=== PATIENT | male | born 1960 | race American Indian/Alaskan Native ===

== ENCOUNTER 2018-07-26 07:26 | Day surgery (SDC) | payer OTHER ==
[~2018-07-26 07:26] MED LIST: ANCEF/STERILE WATER 2 GM/20 ML 2 GM/20 ML SYRINGE IV NR; NACL 0.9% 1000 ML 1,000 ML IV SCH
[2018-07-26] MEDS ORDERED: VERSED IV NR (09:15)
[2018-07-26 09:33] LABS: Basophils # (Auto) 0.1 K/mm3 (0.0-0.1); Basophils % (Auto) 1.3 % (0.0-1.8); Eosinophils # (Auto) 0.1 K/mm3 (0.0-0.4); Eosinophils % (Auto) 1.9 % (0.0-4.3); Hematocrit 35.7 % (35.5-45.6); Hemoglobin 11.5 gm/dl (11.8-15.2); Lymphocytes # (Auto) 1.7 K/mm3 (1.2-5.4); Lymphocytes % (Auto) 23.9 % (13.4-35.0); Mean Corpuscular HGB Conc 32 % (32-34); Mean Corpuscular Volume 83 fl (84-94); Monocytes # (Auto) 0.7 K/mm3 (0.0-0.8); Monocytes % (Auto) 9.5 % (0.0-7.3); Platelet Count 275 K/mm3 (140-440); Red Blood Count 4.31 M/mm3 (3.65-5.03); Red Cell Distribution Width 14.9 % (13.2-15.2)
[2018-07-26] MEDS ORDERED: SUBLIMAZE IV PRN (09:59)
[2018-07-26] MEDS ORDERED: MARCAINE 0.5% INFILTRATI ONE ×4 (10:07→19:12)
[2018-07-26] MEDS ORDERED: NACL 0.9% 500 ML 0 ML ONE (10:07)
[2018-07-26] MEDS ORDERED: HEPARIN 10,000 UNITS/10 ML ONE ×2 (10:07→19:13)
--- NOTE | 2018-07-26 10:14 | Anesthesia Consultation ---
Anesthesia Consult and Med Hx Date of service: 07/26/18 - Airway Anesthetic Teeth Evaluation: Good ROM Head & Neck: Adequate Mental/Hyoid Distance: Adequate Mallampati Class: Class II Intubation Access Assessment: Probably Good - Pulmonary Exam CTA: Yes - Cardiac Exam Cardiac Exam: RRR - Pre-Operative Health Status ASA Pre-Surgery Classification: ASA4 Proposed Anesthetic Plan: General - Pulmonary Hx Smoking: Yes (Former) Hx Asthma: No COPD: No - Cardiovascular System Hx Hypertension: Yes (took metoprolol and amlodipine today) Hx Heart Attack/AMI: No Hx Percutaneous Transluminal Coronary Angioplasty (PTCA): No Hx Cardia Arrhythmia: No Hx Pacemaker: No - Central Nervous System Hx Seizures: No CVA: No Hx Psychiatric Problems: No - Gastrointestinal Hx Gastroesophageal Reflux Disease: No - Endocrine Hx Renal Disease: Yes Hx End Stage Renal Disease: Yes Hx Insulin Dependent Diabetes: Yes (took evening dose of insulin) Hx Thyroid Disease: No - Other Systems Hx Obesity: Yes - Additional Comments Anesthesia Medical History Comments: No hx anesthetic complications.
[2018-07-26] MEDS ORDERED: XYLOCAINE MPF 2% ONE (10:20)
--- NOTE | 2018-07-26 10:20 | Anesthesia Day of Surgery ---
Anesthesia Day of Surgery - Day of Surgery Patient Examined: Yes Patient H&P Reviewed: Yes Patient is NPO: Yes Beta Blockers: Yes
[2018-07-26] MEDS ORDERED: DIPRIVAN 10 MG/ML IV ONE ×2 (10:21→17:58)
[2018-07-26] MEDS ORDERED: SUBLIMAZE ONE ×3 (10:21→17:59)
[2018-07-26] MEDS ORDERED: HEPARIN 10,000 UNITS/10 ML IV ONE (12:39)
[2018-07-26] MEDS ORDERED: NACL 0.9% 500 ML IRRIGATION ONE (12:40)
[2018-07-26] MEDS ORDERED: NACL 0.9% IR ONE (12:41)
[2018-07-26] MEDS ORDERED: ZOFRAN ONE (14:57)
--- NOTE | 2018-07-26 15:37 | Post Operative Note ---
Pre-op diagnosis: end-stage renal disease, malfunctioning AV fistula Post-op diagnosis: same Findings: New AV graft with soft thrill and bruit. Procedure: Creation of left forearm straight radio cephalic AV graft Anesthesia: NICHOLE Surgeon: CYNDI CARTER
--- NOTE | 2018-07-26 15:39 | Post Operative Note ---
Pre-op diagnosis: end-stage renal disease, thrombosed fistula left arm Post-op diagnosis: same Findings: Soft thrill and bruit in left forearm straight radial to cephalic vein graft Procedure: Creation of left forearm straight radial artery to cephalic vein graft Anesthesia: NICHOLE Surgeon: CYNDI CARTER Estimated blood loss: minimal Pathology: none Condition: stable Disposition: same day
[2018-07-26] MEDS ORDERED: NORMODYNE IV ONE ×4 (15:42→20:39)
--- NOTE | 2018-07-26 15:50 | Short Stay Summary ---
Short Stay Documentation Date of service: 07/26/18 Narrative H&P: Patient admitted to the operative suite for outpatient creation of a new AV graft in his left forearm - History H&P: obtained from office - Allergies and Medications Current Medications: Allergies No Known Allergies Allergy (Verified 07/24/18 10:24) Home Medications Medication Instructions Recorded Confirmed Last Taken Type Atorvastatin [Lipitor] 20 mg PO DAILY 05/29/18 07/24/18 07/25/18 History Calcitriol [Rocaltrol] 0.25 mcg PO DAILY 05/29/18 07/24/18 07/25/18 History Metoprolol Tartrate 25 mg PO BID 05/29/18 07/24/18 07/26/18 06:45 History Terazosin [Hytrin] 5 mg PO DAILY 05/29/18 07/24/18 07/25/18 History Amlodipine Besylate [Norvasc] 10 mg PO DAILY 30 Days #30 06/01/18 07/24/18 07/26/18 06:45 Rx Insulin Glargine,Hum.rec.anlog 32 units SQ HS 30 Days 06/01/18 07/24/18 07/25/18 Rx [Lantus] Insulin Glulisine [Apidra] 11 units SQ AC 30 Days 06/01/18 07/24/18 07/25/18 Rx Active Medications Fentanyl (Sublimaze) 50 mcg IV Q5MIN PRN PRN Reason: Pain , Severe (7-10) Stop: 07/26/18 20:00 Cefazolin Sodium (Ancef/Sterile Water 2 Gm/20 Ml) 2 gm in 20 mls @ 80 mls/hr IV PREOP NR; Protocol Stop: 07/26/18 23:59 Sodium Chloride (Nacl 0.9% 1000 Ml) 1,000 mls @ 42 mls/hr IV DIRECT KIMBERLEE Last Admin: 07/26/18 08:50 Dose: 42 mls/hr Documented by: - Brief post op/procedure progress note Date of procedure: 07/26/18 Procedure: Pre-op diagnosis: end-stage renal disease, thrombosed fistula left arm Post-op diagnosis: same Findings: Soft thrill and bruit in left forearm straight radial to cephalic vein graft Procedure: Creation of left forearm straight radial artery to cephalic vein graft Anesthesia: GETA Surgeon: CYNDI CARTER Estimated blood loss: minimal Pathology: none Condition: stable Disposition: same day - Disposition Condition at discharge: Stable Disposition: DC-01 TO HOME OR SELFCARE - Discharge Diagnoses (1) ESRD needing dialysis Status: Chronic Short Stay Discharge Plan Activity: advance as tolerated Weight Bearing Status: Full Weight Bearing Diet: renal Wound: keep clean and dry Special Instructions: no heavy lifting Follow up with: OJ KELLER MD [Primary Care Provider] - 7 Days CYNDI CARTER MD [Staff Physician] - 7 Days Prescriptions: HYDROcodone/APAP 5-325 [[place] 5/325] 1 each PO Q6HR PRN #20 tablet PRN Reason: Pain, Moderate (4-6)
[2018-07-26] MEDS ORDERED: NACL 0.9% 500 ML 500 ML ONE (19:15)
[2018-07-26 21:05] VITALS: BP 165/95
--- NOTE | 2018-07-29 14:14 | Operative Report ---
Operative Report Operative Report: Date of procedure: 07/26/2018 Pre-operative diagnosis: Mechanical complication of surgically created AV fistula left arm, end-stage renal disease, Post-operative diagnosis: Same Procedure name(s): Creation of left forearm radial to brachial vein AV graft Surgeon: Nikolas Darling MD Grinder Operator Tool: None Anesthesia: Gen. EBL: Minimal Specimen(s): None Complications: None but access poorly functioning early in the recovery room assessment Findings: Seemingly adequate inflow via the first several centimeters of the Silvino AV fistula. Full veins smaller than anticipated based on prior venography and fistulograms area fistula suboptimal thrill and bruit. Procedure: Patient in the supine position after adequate levels of general endotracheal anesthesia was obtained the left arm was then extended and prepped and draped using standard sterile technique. I initially explored the proximal forearm at the antecubital fossa after imaging the median cephalic and ante- brachial veins. The cephalic vein with multiple side branches as additional runnoff appeared adequate for anastomosis and therefore was mobilized through the vertical incision in the proximal forearm. I then made a incision overlying the proximal end of the still functioning Silvino fistula and mobilized that segment of vein for several centimeters and determined the inflow was adequate. I then obtained a 6 mm Artegraft and brought it into the surgical field. I tapered the anastomosis and then occluded the Silvino vein and divided it distally from the arterial anastomosis. Later the vein after obtaining vascular control and created an end to side anastomosis using 6-0 Prolene suture and running technique. I flushed the fistula prior to suture line completion and then reoccluded the vessel. A curved Windy-Wick tunneling device was then used to create a forearm tunnel between the 2 incisions and the autograft was attached to the tunneler and withdrawn into the antecubital fossa and a nonrotational fashion. I occluded the veins and made a longitudinal venotomy. I then dilated the veins with hydrostatic pressure and even ran a Andrea without inflating the balloon of the cephalic vein to confirm patency. I then trimmed the graft an appropriate length and configuration and created an end-to-side anastomosis again using 6-0 Prolene suture in four suture running technique. Graft was flushed evacuating air and flow was released into the venous circulation. The graft developed an adequate thrill and bruit. Incisions were then anesthetized with a field block of Marcaine 0.5% and the incisions were closed using 3-0 Vicryl subcutaneous for Monocryl subcuticular. Reassess the graft function several times and was a little concerned that that was slightly diminished flow is the end of the closure maneuver but did not see any compromise in arterial or graft diameter based on intraoperative duplex assessment. The skin was then reapproximated using Dermabond and the patient was then extubated and returned to the recovery room stable condition having tolerated the procedure well. Sponge and needle counts were correct. There was a soft bruit noted in the access.
== END 2018-07-26 07:27 | disposition home or self-care (01) ==
LOC: OR 07:26
PROVIDERS: ATTEND Surgery Vascular Surgery
DX: T82.590A Other mechanical complication of surgically created arteriovenous fistula, initial encounter (principal); I12.0 Hypertensive chronic kidney disease with stage 5 chronic kidney disease or end stage renal disease; E11.22 Type 2 diabetes mellitus with diabetic chronic kidney disease; N18.6 End stage renal disease; M19.90 Unspecified osteoarthritis, unspecified site; E66.9 Obesity, unspecified; Z68.32 Body mass index [BMI] 32.0-32.9, adult; Z99.2 Dependence on renal dialysis; Z79.899 Other long term (current) drug therapy; Z79.4 Long term (current) use of insulin; Z87.891 Personal history of nicotine dependence; Z98.890 Other specified postprocedural states; Y83.8 Other surgical procedures as the cause of abnormal reaction of the patient, or of later complication, without mention of misadventure at the time of the procedure; Y92.89 Other specified places as the place of occurrence of the external cause
CPT/HCPCS: 36415; 36825; 80048; 82962; 85025; C1757; C1768; J0690; J1644; J2250; J2405; J2704; J3010; J7030; J7040

== ENCOUNTER 2018-08-08 05:53 | Day surgery (SDC) | payer OTHER ==
[2018-08-08] MEDS ORDERED: ANCEF/STERILE WATER 2 GM/20 ML 2 GM/20 ML SYRINGE IV NR (06:00)
[2018-08-08] MEDS ORDERED: NACL 0.9% 1000 ML 1,000 ML IV SCH (06:00)
[2018-08-08] MEDS ORDERED: HEPARIN 10,000 UNITS/10 ML ONE (07:29)
[2018-08-08] MEDS ORDERED: MARCAINE 0.5% INFILTRATI ONE ×2 (07:29→08:11)
[2018-08-08] MEDS ORDERED: PROTAMINE SULFATE ONE (07:29)
[2018-08-08] MEDS ORDERED: NACL 0.9% 500 ML 500 ML ONE (07:30)
[2018-08-08] MEDS ORDERED: SODIUM BICARBONATE ONE (07:30)
[2018-08-08] MEDS ORDERED: XYLOCAINE 1%/ EPI 1:100,000 INFILTRATI ONE (07:30)
[2018-08-08] MEDS ORDERED: XYLOCAINE MPF 2% ONE (07:33)
[2018-08-08] MEDS ORDERED: DIPRIVAN 10 MG/ML IV ONE (07:33)
[2018-08-08] MEDS ORDERED: SUBLIMAZE ONE (07:33)
[2018-08-08] MEDS ORDERED: KETALAR ONE (07:34)
--- NOTE | 2018-08-08 07:42 | Anesthesia Consultation ---
Anesthesia Consult and Med Hx Date of service: 08/08/18 - Airway Anesthetic Teeth Evaluation: Good ROM Head & Neck: Adequate Mental/Hyoid Distance: Adequate Mallampati Class: Class II Intubation Access Assessment: Good - Pulmonary Exam CTA: Yes - Cardiac Exam Cardiac Exam: RRR - Pre-Operative Health Status ASA Pre-Surgery Classification: ASA3 Proposed Anesthetic Plan: General - Pulmonary Hx Smoking: Yes (Former) Hx Respiratory Symptoms: No - Cardiovascular System Hx Hypertension: Yes Hx Cardia Arrhythmia: No - Central Nervous System Hx Psychiatric Problems: No - Gastrointestinal Hx Gastroesophageal Reflux Disease: No - Endocrine Hx Renal Disease: Yes Hx End Stage Renal Disease: Yes Hx Insulin Dependent Diabetes: Yes (took evening dose of insulin) Hx Thyroid Disease: No - Other Systems Hx Cancer: No
[2018-08-08] MEDS ORDERED: DILAUDID IV PRN (07:43)
[2018-08-08] MEDS ORDERED: ZOFRAN IV PRN (07:43)
[2018-08-08] MEDS ORDERED: SUBLIMAZE IV PRN (07:43)
--- NOTE | 2018-08-08 07:43 | Anesthesia Day of Surgery ---
Anesthesia Day of Surgery - Day of Surgery Patient Examined: Yes Patient H&P Reviewed: Yes Patient is NPO: Yes Beta Blockers: Yes Cardiac Clearance: No Pulmonary Clearance: No
[2018-08-08] MEDS ORDERED: HEPARIN 10,000 UNITS/10 ML IV ONE (08:11)
[2018-08-08] MEDS ORDERED: NACL 0.9% IR ONE (08:11)
[2018-08-08] MEDS ORDERED: NACL 0.9% 500 ML IV ONE (08:11)
--- NOTE | 2018-08-08 11:09 | Short Stay Summary ---
Short Stay Documentation Date of service: 08/08/18 - History H&P: obtained from office - Allergies and Medications Current Medications: Allergies No Known Allergies Allergy (Verified 08/06/18 18:00) Home Medications Medication Instructions Recorded Confirmed Last Taken Type Atorvastatin [Lipitor] 20 mg PO DAILY 05/29/18 08/08/18 08/08/18 05:00 History Calcitriol [Rocaltrol] 0.25 mcg PO DAILY 05/29/18 08/08/18 08/07/18 12:00 History Metoprolol Tartrate 25 mg PO BID 05/29/18 08/08/18 08/08/18 05:00 History Terazosin (Nf) [Hytrin (Nf)] 5 mg PO DAILY 05/29/18 08/08/18 08/07/18 20:30 History Amlodipine Besylate [Norvasc] 10 mg PO DAILY 30 Days #30 06/01/18 08/08/18 08/08/18 05:00 Rx Insulin Glargine,Hum.rec.anlog 32 units SQ HS 30 Days 06/01/18 08/08/18 08/07/18 19:30 Rx [Lantus] Insulin Glulisine [Apidra] 11 units SQ AC 30 Days 06/01/18 08/08/18 08/07/18 19:30 Rx HYDROcodone/APAP 5-325 [[place] 1 each PO Q6HR PRN #20 tablet 07/26/18 08/06/18 Unknown Rx 5/325] Active Medications Fentanyl (Sublimaze) 50 mcg IV Q5MIN PRN PRN Reason: Pain , Severe (7-10) Stop: 08/08/18 20:00 Hydromorphone HCl (Dilaudid) 0.5 mg IV Q10MIN PRN PRN Reason: Pain , Severe (7-10) Stop: 08/08/18 20:00 Cefazolin Sodium (Ancef/Sterile Water 2 Gm/20 Ml) 2 gm in 20 mls @ 80 mls/hr IV PREOP NR; Protocol Stop: 08/08/18 23:59 Sodium Chloride (Nacl 0.9% 1000 Ml) 1,000 mls @ 42 mls/hr IV DIRECT KIMBERLEE Last Admin: 08/08/18 07:00 Dose: 42 mls/hr Documented by: Ondansetron HCl (Zofran) 4 mg IV ONCE PRN PRN Reason: Nausea And Vomiting Stop: 08/08/18 16:00 - Brief post op/procedure progress note Date of procedure: 08/08/18 Pre-op diagnosis: ESRD Post-op diagnosis: same Procedure: Left arm Brachial artery to axillary vein bridge graft, (7mm Artegraft). Anesthesia: GETA Findings: Good thrill and bruit, audible doppler signals at the radial post op. Surgeon: CYNDI CARTER Estimated blood loss: minimal Condition: stable - Hospital course Hospital course: Outpt procedure uneventful, then to PACU, for D/c later this am. - Disposition Condition at discharge: Stable Disposition: DC-01 TO HOME OR SELFCARE - Discharge Diagnoses (1) ESRD needing dialysis Status: Chronic Short Stay Discharge Plan Activity: advance as tolerated Weight Bearing Status: Weight Bear as Tolerated Diet: renal Wound: keep clean and dry Follow up with: CYNDI CARTER MD [Staff Physician] - 14 Days
--- NOTE | 2018-08-08 11:16 | Operative Report ---
Operative Report Operative Report: Date of procedure: 08/08/2018 Pre-operative diagnosis: Thrombosed hemodialysis access graft, end-stage renal disease on dialysis Post-operative diagnosis: Same Procedure name(s): Creation of left arm brachial artery to axillary vein dialysis shunt using bovine Artegraft 7 millimeters Surgeon: Nikolas Darling MD Associate Director Financial Aid: None Anesthesia: Gen. EBL: Less than 50 mL Specimen(s): None Complications: None Findings: Adequate size brachial artery and axillary vein. The graft with excellent thrill and bruit. Procedure: Patient in the supine position with the left arm extended the entire extremity is prepped and draped using standard sterile technique. Through anesthetized skin longitudinal incision was made over the brachial pulse just above the antecubital fossa and carried down through the subcutaneous tissue. The brachial artery was identified and mobilized for several centimeters and encircled using vessel loops. Attention was then turned to the axilla where again a longitudinal incision was made through anesthetized skin and carried down through subcutaneous tissue until the axillary vein was identified and mobilized for several centimeters. Attention was then again and turned to the brachial incision with artery was occluded and a longitudinal arteriotomy was then made. The 7 mm bovine Artegraft was brought into the surgical field, and an end to side anastomosis was then created using 6-0 Prolene suture and running technique. Prior to completion of the suture line antegrade and retrograde flushing was performed. Suture line was then completed, the graft controlled and flow was released back to the hand. A curved Windy-Wick tunneling device was used to create a curvilinear subcutaneous tunnel from the axillary incision into the brachial incision. The graft was then attached and withdrawn in a nonrotational fashion. Axillary vein was then controlled and opened longitudinally and the graft was then trimmed to an appropriate length and configuration and sutured end to side fashion with 6-0 Prolene suture 4 needle technique. The graft was then released evacuating air. Flow was then released retrograde down the brachial vein and subsequently released to the shoulder. Hemostasis was excellent. Graft developed a very nice thrill and bruit. There was a strong Doppler ulnar signal and palmar arch pulse dopplerable at the completion of the procedure. Hemostasis was adequate. The incisions were then blocked with Marcaine 0.5% plain and closed in layers using 3-0 Vicryl subcutaneous for Monocryl subcuticular. Skin was reapproximated with octylseal. Patient was then extubated and returned to the recovery room in stable condition having tolerated the procedure well. Sponge and needle counts were correct.
[2018-08-08 11:32] VITALS: BP 152/85
== END 2018-08-08 05:54 | disposition home or self-care (01) ==
LOC: OR 05:53
PROVIDERS: ATTEND Surgery Vascular Surgery
DX: T82.868A Thrombosis due to vascular prosthetic devices, implants and grafts, initial encounter (principal); I12.0 Hypertensive chronic kidney disease with stage 5 chronic kidney disease or end stage renal disease; E11.22 Type 2 diabetes mellitus with diabetic chronic kidney disease; N18.6 End stage renal disease; M19.90 Unspecified osteoarthritis, unspecified site; Z79.899 Other long term (current) drug therapy; Z79.4 Long term (current) use of insulin; Z79.01 Long term (current) use of anticoagulants; Z87.891 Personal history of nicotine dependence; Z98.890 Other specified postprocedural states; Y83.8 Other surgical procedures as the cause of abnormal reaction of the patient, or of later complication, without mention of misadventure at the time of the procedure; Y92.89 Other specified places as the place of occurrence of the external cause
CPT/HCPCS: 36830; 82803; 82962; C1768; J0690; J1644; J2704; J2720; J3010; J7030; J7040